=== PATIENT | male | born 1970 | race Asian ===

== ENCOUNTER 2020-02-17 02:01 | Emergency (ER) | payer BC ==
[~2020-02-17] VITALS: Ht 170.2 cm; Wt 79.0 kg
[2020-02-17] MEDS ORDERED: ONDANSETRON HCL 4MG/2ML INJ IV STA (02:10)
[2020-02-17] MEDS ORDERED: LORAZEPAM 2MG/ML CPJ IV ONE ×2 (02:15→03:30)
[2020-02-17] MEDS ORDERED: LEVETIRACETAM 1000MG PREMIX 100 ML IV ONE (02:15)
[2020-02-17] MEDS ORDERED: NICARDIPINE 100 MG in SODIUM CHLORIDE 0.9% 60 ML IV ONE (02:30)
[2020-02-17] MEDS ORDERED: MORPHINE SULFATE 4 MG/ML CPJ (NOT FOR IM USE) IV ONE (02:30)
[2020-02-17 02:34] LABS: EOSINOPHILS % 0.5 % (0.0-5.0); HEMOGLOBIN. 14.4 g/dL (14.0-18.0); LYMPHOCYTES % 12.2 % (20.0-50.0); MEAN CORPUSCULAR HEMOGLOBIN 29.2 pg (28.0-32.0); MEAN CORPUSCULAR VOLUME 87.1 fL (80.0-94.0); MEAN PLATELET VOLUME 8.5 fl (7.4-10.4); MONOCYTES % 4.4 % (2.0-8.0); NEUTROPHILS % 81.9 % (40.0-76.0); PLATELET 269 x1000/uL (130-400); RED BLOOD CELL COUNT 4.94 mill/uL (4.7-6.1); RED CELL DISTRIBUTION WIDTH 12.6 % (11.6-14.6)
[2020-02-17 02:36] LABS: CHLORIDE 104 mEq/L (98-107)
[2020-02-17 02:40] LABS: ETHANOL BLOOD < 10 mg/dL
[2020-02-17] MEDS ORDERED: MORPHINE SULFATE 4 MG/ML CPJ (NOT FOR IM USE) IV SCH (02:45)
[2020-02-17] MEDS ORDERED: DEXAMETHASONE 10 MG/ML VIAL IV ONE (03:00)
[2020-02-17] MEDS ORDERED: NICARDIPINE 100 MG in SODIUM CHLORIDE 0.9% 60 ML IV SCH (03:00)
[2020-02-17] MEDS ORDERED: IOHEXOL-350 100 ML BOTTLE ONE (03:00)
[2020-02-17] MEDS ORDERED: MANNITOL 20% 500 ML IV ONE (03:00)
[2020-02-17 03:10] LABS: INR 1.1; PROTHROMBIN TIME 11.8 sec (9.6-11.0)
[2020-02-17] MEDS ORDERED: SUCCINYLCHOLINE CHLORIDE 200MG/10ML IV ONE (04:00)
[2020-02-17] MEDS ORDERED: PROPOFOL 10MG/ML 100ML 100 ML IV ONE ×2 (04:00→06:07)
[2020-02-17 05:28] LABS: BG BASE EXCESS -2.1 mmol/L (-2.0-2.0); BG CARBOXYHEMOGLOBIN 0.1 % (0.5-1.5); BG FRACTION INSPIRED OXYGEN 40; BG HCO3 ACT 20.6 mmol/L (22.0-26.0); BG METHEMOGLOBIN 0.2 % (0.0-1.5); BG OXYHEMOGLOBIN 97.7 % (94.0-97.0); BG PCO2 30.3 mmHg (35.0-45.0); BG PH 7.451 (7.350-7.450); BG PO2 105.7 mmHg (75.0-100.0); BG SAMPLE SITE LEFT RADIAL; BG TOTAL HEMOGLOBIN 14.7 g/dL (12.0-18.0); BG VENT MODE VENT - AC
[2020-02-17 06:29] VITALS: BP 114/67
== END 2020-02-17 06:30 | disposition short-term general hospital (02) ==
LOC: ER 02:17
DX: I60.8 Other nontraumatic subarachnoid hemorrhage (principal); I16.1 Hypertensive emergency; J96.90 Respiratory failure, unspecified, unspecified whether with hypoxia or hypercapnia; R56.9 Unspecified convulsions; E78.00 Pure hypercholesterolemia, unspecified; Z20.828 Contact with and (suspected) exposure to other viral communicable diseases
CPT/HCPCS: 31500; 36415; 36600; 70450; 70496; 71045; 80053; 80320; 82375; 82805; 84484; 85025; 85610; 87426; 99291; J1100; J1953; J2060; J2270; J2405; J2704; J3490; J7050; Q9967; G0480